=== PATIENT | male | born 1980 | race African-American/Black ===

== ENCOUNTER 2021-04-05 08:32 | Inpatient (IN) | payer OTHER ==
[2021-04-05] VITALS (9 sets, daily range): BP systolic 113–146; BP diastolic 67–94
[~2021-04-05] VITALS: Ht 170.2 cm; Wt 87.4 kg
[~2021-04-05 08:32] MED LIST: ACET1TAB12 PO; ASPI-1005 PO; CIPR500T10 PO; DOXY100T21 PO; HUM10VIA6 SQ; INSLAN SQ; INSU200I SQ; LISI20TA24 PO; METF-444 PO
[2021-04-05 09:00] LABS: BASOPHILS % (AUTO) 0.4 % (0.0-5.0); EOSINOPHILS % (AUTO) 2.4 % (0.0-8.0); LYMPHOCYTES % (AUTO) 8.1 % (21.0-51.0); MEAN CORPUSCULAR HEMOGLOBIN 31.7 pg (27.0-33.0); MEAN CORPUSCULAR HGB CONC 33.5 g/dL (32.0-36.0); MEAN CORPUSCULAR VOLUME 94.7 fL (79-99); MONOCYTES % (AUTO) 7.2 % (3.0-13.0); NEUTROPHILS % (AUTO) 81.1 % (40.0-77.0); PLATELET COUNT (AUTO) 317 K/uL (130-400); RED BLOOD CELL COUNT(AUTO) 5.81 MIL/uL (4.50-6.20); RED CELL DISTRIBUTION WIDTH 12.6 % (11.0-15.5); WHITE BLOOD COUNT (AUTO) 11.7 K/uL (4.8-10.8)
[2021-04-05] MEDS ORDERED: ONDANSETRON 4MG INJ IVP ONE (09:00)
[2021-04-05] MEDS ORDERED: 0.9%NACL 1000ML 2,000 ML IV ONE (09:00)
[2021-04-05 09:20] LABS: ABG BASE EXCESS -22.6 mmol/L (-2.0-3.0); ABG HCO3 3.9 mmol/L (21.0-28.0); ABG OXYGEN SATURATION 98.1 % (95.0-99.0); ABG PCO2 < 14 mmHg (35-48)
[2021-04-05 09:21] LABS: ALBUMIN 4.4 g/dL (3.5-5.0); BILIRUBIN,TOTAL 0.6 mg/dL (0.2-1.0); CREATININE 2.1 mg/dL (0.5-1.5); MAGNESIUM 2.2 mg/dL (1.80-2.40); PHOSPHORUS 5.4 mg/dL (2.5-4.9); POTASSIUM 5.3 mmol/L (3.5-5.1); TOTAL PROTEIN, SERUM 8.8 g/dL (6.0-8.3)
[2021-04-05] MEDS ORDERED: MORPHINE 2 MG SYG IVP ONE (10:00)
[2021-04-05] MEDS ORDERED: DEXTROSE 5 %-0.45 % NACL 1,000 ML IV PRN (10:00)
[2021-04-05] MEDS ORDERED: ACETAMINOPHEN 325 MG SUPPOSITORY RC PRN (10:00)
[2021-04-05] MEDS ORDERED: POTASSIUM CHLORIDE 10MEQ/100ML 100 ML IV PRN (10:00)
[2021-04-05] MEDS ORDERED: ONDANSETRON 4MG INJ IVP PRN (10:00)
[2021-04-05] MEDS ORDERED: INSULIN REGULAR, HUMAN 3ML 100 UNIT in 0.9%NACL 100ML 99 ML IV PRN ×2 (10:00)
[2021-04-05] MEDS: 0.9%NACL 1000ML 1,000 ML IV SCH ×5 (10:22→20:00)
[2021-04-05 10:23] LABS: MAGNESIUM 2.4 mg/dL (1.80-2.40)
[2021-04-05 10:38] LABS: APPEARANCE,URINE Clear (CLEAR); BILIRUBIN,URINE Negative (NEGATIVE); COLOR,URINE Yellow (YELLOW); GLUCOSE, URINE (UA) >=1000 mg/dL (NEGATIVE); KETONES,URINE >=160 mg/dL (NEGATIVE); LEUKOCYTE ESTERASE ,URINE Negative (NEGATIVE); NITRATE,URINE Negative (NEGATIVE); OCCULT BLOOD,URINE Trace (NEGATIVE); PROTEIN,URINE POS 2+ mg/dL (NEGATIVE); UROBILINOGEN,URINE 0.2 mg/dL (0.2-1.0)
[2021-04-05 10:57] LABS: BACTERIA,URINE Rare /HPF (None Seen); RBC,URINE 0-1 /HPF (0-1); SQUAMOUS EPITHELIAL CELL,UR Rare /HPF (0-2); WBC,URINE 0-1 /HPF (0-1)
[2021-04-05] MEDS ORDERED: PHARMACY COMMUNICATION MISC PRN (11:00)
[2021-04-05] MEDS ORDERED: SODIUM BICARB 50MEQ 50ML VIAL IV ONE (11:00)
[2021-04-05 11:32] LABS: AMPHET/METH SCREEN,URINE NEGATIVE (NEGATIVE); BARBITURATE SCREEN, URINE NEGATIVE (NEGATIVE); BENZODIAZEPINES SCREEN,URINE NEGATIVE (NEGATIVE); CANNABINOID SCREEN,URINE NEGATIVE (NEGATIVE); COCAINE SCREEN,URINE NEGATIVE (NEGATIVE); OPIATE SCREEN,URINE NEGATIVE (NEGATIVE); PHENCYCLIDINE SCREEN,URINE NEGATIVE (NEGATIVE)
[2021-04-05] MEDS: LACTATED RINGERS 1000ML 1,000 ML IV SCH ×4 (11:36→14:17)
[2021-04-05 12:49] LABS: HEMOGLOBIN A1C 13.6 % (4.0-6.0)
[2021-04-05] MEDS: CHLORDIAZEPOXIDE HCL 25 MG CAP PO SCH ×2 (14:22→20:19)
[2021-04-05 14:52] LABS: CREATININE 1.5 mg/dL (0.5-1.5); MAGNESIUM 2.1 mg/dL (1.80-2.40); POTASSIUM 4.2 mmol/L (3.5-5.1)
[2021-04-05 21:53] LABS: CREATININE 1.2 mg/dL (0.5-1.5); MAGNESIUM 2.1 mg/dL (1.80-2.40); POTASSIUM 3.5 mmol/L (3.5-5.1)
[2021-04-05] MEDS ORDERED: POTASSIUM CHLORIDE 10% ELIXIR 20 MEQ/15 ML UDCUP PO PRN (23:30)
[2021-04-05] MEDS ORDERED: LIDOCAINE HCL-MPF 1% 2ML VIAL IV PRN (23:30)
[2021-04-05] MEDS ORDERED: INSULIN GLARGINE 100 UNITS/ML 10 ML VIAL SQ ONE (23:30)
[2021-04-06] VITALS (24 sets, daily range): BP systolic 105–154; BP diastolic 65–91
[2021-04-06] MEDS ORDERED: FAMOTIDINE 20MG VIAL IV ONE ×2 (01:47→02:00)
[2021-04-06 03:01] LABS: ABG BASE EXCESS -17.2 mmol/L (-2.0-3.0); ABG PCO2 20 mmHg (35-48)
[2021-04-06] MEDS: 0.9%NACL 1000ML 1,000 ML IV SCH ×3 (03:30→13:19)
[2021-04-06] MEDS ORDERED: POTASSIUM CHLORIDE 10MEQ/100ML 100 ML IV PRN (03:30)
[2021-04-06] MEDS ORDERED: [UNRECOGNIZED DRUG - OTHER] IV ONE (03:30)
[2021-04-06] MEDS ORDERED: DEXTROSE 5 %-0.45 % NACL 1,000 ML IV PRN (03:30)
[2021-04-06] MEDS: LACTATED RINGERS 1000ML 1,000 ML IV SCH ×5 (03:40→22:52)
[2021-04-06 03:54] LABS: CREATININE 1.2 mg/dL (0.5-1.5); MAGNESIUM 1.8 mg/dL (1.80-2.40)
[2021-04-06] MEDS ORDERED: INSULIN REGULAR, HUMAN 3ML 100 UNIT in 0.9%NACL 100ML 99 ML IV PRN ×2 (04:00)
[2021-04-06] MEDS ORDERED: INSULIN HUMULIN R 100 UNIT/ML 3ML SQ SCH (07:30)
[2021-04-06 07:56] LABS: BASOPHILS % (AUTO) 0.3 % (0.0-5.0); EOSINOPHILS % (AUTO) 0.2 % (0.0-8.0); HEMATOCRIT 41.6 % (42-54); LYMPHOCYTES % (AUTO) 25.3 % (21.0-51.0); MEAN CORPUSCULAR HEMOGLOBIN 31.9 pg (27.0-33.0); MEAN CORPUSCULAR HGB CONC 35.1 g/dL (32.0-36.0); MEAN CORPUSCULAR VOLUME 90.8 fL (79-99); NEUTROPHILS % (AUTO) 60.6 % (40.0-77.0); PLATELET COUNT (AUTO) 186 K/uL (130-400); RED BLOOD CELL COUNT(AUTO) 4.58 MIL/uL (4.50-6.20); RED CELL DISTRIBUTION WIDTH 12.7 % (11.0-15.5); WHITE BLOOD COUNT (AUTO) 9.7 K/uL (4.8-10.8)
[2021-04-06 08:19] LABS: CREATININE 1.1 mg/dL (0.5-1.5); POTASSIUM 3.3 mmol/L (3.5-5.1)
[2021-04-06] MEDS: CHLORDIAZEPOXIDE HCL 25 MG CAP PO SCH ×2 (08:38→20:50)
[2021-04-06] MEDS: FOLIC ACID 1 MG TABLET PO SCH (08:38)
[2021-04-06] MEDS: MULTIVITAMIN TABLET PO SCH (08:38)
[2021-04-06] MEDS: ENOXAPARIN SODIUM 40 MG/0.4 ML SYRINGE SQ SCH (08:38)
[2021-04-06] MEDS: THIAMINE HCL 100 MG/ML 2ML VIAL IM SCH (08:39)
[2021-04-06] MEDS: FAMOTIDINE 20MG VIAL IV SCH ×2 (08:39→20:50)
[2021-04-06] MEDS: POTASSIUM CHLORIDE 20MEQ/100ML 100 ML IV PRN (08:42)
[2021-04-06] MEDS: KCL 20 MEQ ERTAB PO PRN ×2 (08:43→20:54)
[2021-04-06] MEDS ORDERED: INSULIN GLARGINE 100 UNITS/ML 10 ML VIAL SQ SCH (09:00)
[2021-04-06 09:44] LABS: THYROID STIMULATING HORMONE 0.88 uIU/mL (0.36-3.74)
[2021-04-06 12:06] LABS: CREATININE 1.1 mg/dL (0.5-1.5); POTASSIUM 3.6 mmol/L (3.5-5.1)
[2021-04-06 14:17] LABS: ABG HCO3 14.6 mmol/L (21.0-28.0); ABG OXYGEN SATURATION 97.4 % (95.0-99.0); ABG PCO2 26 mmHg (35-48)
[2021-04-06 16:10] LABS: HEPATITIS A ANTIBODY IGM Negative (Negative); HEPATITIS B CORE IGM Negative (Negative); HEPATITIS Bs ANTIGEN SCREEN P Negative (Negative)
[2021-04-06 16:40] LABS: POTASSIUM 3.4 mmol/L (3.5-5.1)
[2021-04-06 19:26] LABS: ABG BASE EXCESS -8.6 mmol/L (-2.0-3.0); ABG HCO3 14.8 mmol/L (21.0-28.0); ABG OXYGEN SATURATION 97.6 % (95.0-99.0); ABG PCO2 26 mmHg (35-48)
[2021-04-06 20:33] LABS: POTASSIUM 3.3 mmol/L (3.5-5.1)
[2021-04-07] VITALS (15 sets, daily range): BP systolic 99–146; BP diastolic 60–96
[2021-04-07 00:53] LABS: CREATININE 1.1 mg/dL (0.5-1.5); POTASSIUM 3.7 mmol/L (3.5-5.1)
[2021-04-07] MEDS: LACTATED RINGERS 1000ML 1,000 ML IV SCH ×3 (05:45→23:22)
[2021-04-07 08:37] LABS: CREATININE 0.9 mg/dL (0.5-1.5); POTASSIUM 3.1 mmol/L (3.5-5.1)
[2021-04-07] MEDS: THIAMINE HCL 100 MG/ML 2ML VIAL IM SCH (08:39)
[2021-04-07] MEDS: FAMOTIDINE 20MG VIAL IV SCH ×2 (08:39→20:07)
[2021-04-07] MEDS: CHLORDIAZEPOXIDE HCL 25 MG CAP PO SCH ×2 (08:40→20:07)
[2021-04-07] MEDS: MULTIVITAMIN TABLET PO SCH (08:40)
[2021-04-07] MEDS: ENOXAPARIN SODIUM 40 MG/0.4 ML SYRINGE SQ SCH (08:40)
[2021-04-07] MEDS: FOLIC ACID 1 MG TABLET PO SCH (08:40)
[2021-04-07] MEDS: POTASSIUM CHLORIDE 20MEQ/100ML 100 ML IV PRN (08:45)
[2021-04-07] MEDS: KCL 20 MEQ ERTAB PO PRN ×7 (08:46→22:37)
[2021-04-07 12:19] LABS: CREATININE 0.7 mg/dL (0.5-1.5); POTASSIUM 3.2 mmol/L (3.5-5.1)
[2021-04-07] MEDS ORDERED: INSULIN GLARGINE 100 UNITS/ML 10 ML VIAL SQ ONE (13:00)
[2021-04-07] MEDS: INSULIN HUMULIN R 100 UNIT/ML 3ML SQ SCH ×4 (13:00→20:29)
[2021-04-07 18:17] LABS: MAGNESIUM 1.6 mg/dL (1.80-2.40); POTASSIUM 3.2 mmol/L (3.5-5.1)
[2021-04-07] MEDS ORDERED: MAGNESIUM 2GM PREMIX 50ML 50 ML IV ONE (18:25)
[2021-04-07] MEDS ORDERED: MAGNESIUM 2GM PREMIX 50ML 50 ML IV PRN (18:30)
[2021-04-08] MEDS: LACTATED RINGERS 1000ML 1,000 ML IV SCH (02:39)
[2021-04-08 03:47] VITALS: BP 113/61
[2021-04-08 04:57] LABS: CREATININE 0.6 mg/dL (0.5-1.5); POTASSIUM 3.8 mmol/L (3.5-5.1)
[2021-04-08] MEDS: INSULIN HUMULIN R 100 UNIT/ML 3ML SQ SCH ×7 (06:22→20:22)
[2021-04-08] MEDS ORDERED: INSULIN GLARGINE 100 UNITS/ML 10 ML VIAL SQ SCH ×2 (07:30→09:00)
[2021-04-08 08:00] VITALS: BP 121/84
[2021-04-08] MEDS ORDERED: THIAMINE HCL 100 MG/ML 2ML VIAL IV SCH (09:00)
[2021-04-08] MEDS: MULTIVITAMIN TABLET PO SCH (09:46)
[2021-04-08] MEDS: FOLIC ACID 1 MG TABLET PO SCH (09:47)
[2021-04-08] MEDS: CHLORDIAZEPOXIDE HCL 25 MG CAP PO SCH ×2 (09:47→20:21)
[2021-04-08] MEDS: FAMOTIDINE 20MG VIAL IV SCH ×2 (09:47→20:21)
[2021-04-08] MEDS: METOPROLOL TARTRATE 25 MG TAB PO SCH ×2 (09:47→20:21)
[2021-04-08] MEDS: ENOXAPARIN SODIUM 40 MG/0.4 ML SYRINGE SQ SCH (09:48)
[2021-04-08 12:00] VITALS: BP 133/83
[2021-04-08 16:00] VITALS: BP 140/97
[2021-04-08 20:10] VITALS: BP 134/89
[2021-04-09 00:05] VITALS: BP 122/76
[2021-04-09 04:09] VITALS: BP 134/89
[2021-04-09 04:54] LABS: BASOPHILS % (AUTO) 0.7 % (0.0-5.0); EOSINOPHILS % (AUTO) 4.3 % (0.0-8.0); HEMATOCRIT 37.6 % (42-54); LYMPHOCYTES % (AUTO) 52.4 % (21.0-51.0); MEAN CORPUSCULAR HEMOGLOBIN 32.2 pg (27.0-33.0); MEAN CORPUSCULAR HGB CONC 34.8 g/dL (32.0-36.0); MEAN CORPUSCULAR VOLUME 92.4 fL (79-99); MONOCYTES % (AUTO) 10.2 % (3.0-13.0); NEUTROPHILS % (AUTO) 32.2 % (40.0-77.0); PLATELET COUNT (AUTO) 150 K/uL (130-400); RED BLOOD CELL COUNT(AUTO) 4.07 MIL/uL (4.50-6.20); RED CELL DISTRIBUTION WIDTH 12.4 % (11.0-15.5); WHITE BLOOD COUNT (AUTO) 5.6 K/uL (4.8-10.8)
[2021-04-09 05:09] LABS: CREATININE 0.8 mg/dL (0.5-1.5); POTASSIUM 4.1 mmol/L (3.5-5.1)
[2021-04-09] MEDS: INSULIN HUMULIN R 100 UNIT/ML 3ML SQ SCH ×6 (05:17→16:55)
[2021-04-09 07:30] VITALS: BP 113/79
[2021-04-09] MEDS ORDERED: INSULIN HUMULIN R 100 UNIT/ML 3ML SQ SCH (07:30)
[2021-04-09] MEDS ORDERED: INSULIN GLARGINE 100 UNITS/ML 10 ML VIAL SQ SCH ×2 (09:00)
[2021-04-09] MEDS: MULTIVITAMIN TABLET PO SCH (10:07)
[2021-04-09] MEDS: METOPROLOL TARTRATE 25 MG TAB PO SCH (10:07)
[2021-04-09] MEDS: ENOXAPARIN SODIUM 40 MG/0.4 ML SYRINGE SQ SCH (10:07)
[2021-04-09] MEDS: FAMOTIDINE 20MG VIAL IV SCH (10:07)
[2021-04-09] MEDS: CHLORDIAZEPOXIDE HCL 25 MG CAP PO SCH (10:07)
[2021-04-09 11:00] VITALS: BP 131/80
[2021-04-09 16:00] VITALS: BP 127/85
[2021-04-10] MEDS ORDERED: INSULIN HUMULIN R 100 UNIT/ML 3ML SQ SCH (07:30)
== END 2021-04-09 20:00 | disposition home or self-care (01) | DRG 638 ==
LOC: EDH 08:32 → EDHIP 10:01 → INTOOBSV 10:01 → OBSVTOIN 10:01 → 2DH 14:01 → 4BH 04-07 18:37
PROVIDERS: ADMIT Internal Medicine; ATTEND Internal Medicine
DX: E10.10 Type 1 diabetes mellitus with ketoacidosis without coma (principal); N17.9 Acute kidney failure, unspecified; T38.3X6A Underdosing of insulin and oral hypoglycemic [antidiabetic] drugs, initial encounter; I12.9 Hypertensive chronic kidney disease with stage 1 through stage 4 chronic kidney disease, or unspecified chronic kidney disease; E78.5 Hyperlipidemia, unspecified; E87.6 Hypokalemia; N18.9 Chronic kidney disease, unspecified; E10.22 Type 1 diabetes mellitus with diabetic chronic kidney disease; E10.649 Type 1 diabetes mellitus with hypoglycemia without coma; J44.9 Chronic obstructive pulmonary disease, unspecified; F12.90 Cannabis use, unspecified, uncomplicated; E86.0 Dehydration; D72.829 Elevated white blood cell count, unspecified; E87.5 Hyperkalemia; E10.65 Type 1 diabetes mellitus with hyperglycemia; Y92.89 Other specified places as the place of occurrence of the external cause; Z79.4 Long term (current) use of insulin; Z91.14 Patient's other noncompliance with medication regimen; Z91.19 Patient's noncompliance with other medical treatment and regimen; Z82.0 Family history of epilepsy and other diseases of the nervous system; Z82.3 Family history of stroke; Z83.3 Family history of diabetes mellitus; Z82.5 Family history of asthma and other chronic lower respiratory diseases; Z82.49 Family history of ischemic heart disease and other diseases of the circulatory system
CPT/HCPCS: 36415; 36600; 80048; 80053; 80061; 80074; 80305; 81001; 82010; 82150; 82435; 82550; 82803; 82947; 82948; 83036; 83605; 83690; 83735; 83874; 84100; 84132; 84295; 84443; 84484; 85018; 85025; 86701; 87390; 93005; 93306; 99291; G0378; J1650; J1815; J2405; J3411; J3475; J3480; J3490; J7030; J7120

== ENCOUNTER 2021-06-17 15:22 | Inpatient (IN) | payer OTHER ==
[~2021-06-17] VITALS: Ht 170.2 cm; Wt 68.0 kg
[~2021-06-17 15:22] MED LIST changes: -ACET1TAB12 PO; -ASPI-1005 PO; -CIPR500T10 PO; -DOXY100T21 PO; -HUM10VIA6 SQ; -INSLAN SQ; -INSU200I SQ; -LISI20TA24 PO
[2021-06-17 15:54] LABS: BASOPHILS % (AUTO) 0.4 % (0.0-5.0); EOSINOPHILS % (AUTO) 0.2 % (0.0-8.0); HEMATOCRIT 53.2 % (42-54); LYMPHOCYTES % (AUTO) 16.9 % (21.0-51.0); MEAN CORPUSCULAR HEMOGLOBIN 32.2 pg (27.0-33.0); MEAN CORPUSCULAR HGB CONC 34.4 g/dL (32.0-36.0); MEAN CORPUSCULAR VOLUME 93.7 fL (79-99); MONOCYTES % (AUTO) 6.5 % (3.0-13.0); NEUTROPHILS % (AUTO) 75.7 % (40.0-77.0); PLATELET COUNT (AUTO) 206 K/uL (130-400); RED BLOOD CELL COUNT(AUTO) 5.68 MIL/uL (4.50-6.20); RED CELL DISTRIBUTION WIDTH 11.7 % (11.0-15.5); WHITE BLOOD COUNT (AUTO) 11.3 K/uL (4.8-10.8)
[2021-06-17 16:17] LABS: CREATININE 1.2 mg/dL (0.5-1.5); POTASSIUM 4.7 mmol/L (3.5-5.1)
[2021-06-17 16:21] LABS: ALBUMIN 4.8 g/dL (3.5-5.0); BILIRUBIN,TOTAL 0.7 mg/dL (0.2-1.0); TOTAL PROTEIN, SERUM 9.3 g/dL (6.0-8.3)
[2021-06-17] MEDS ORDERED: 0.9%NACL 1000ML 1,000 ML IV ONE (16:30)
[2021-06-17] MEDS ORDERED: LACTATED RINGERS 1000ML 1,000 ML IV ONE (17:00)
[2021-06-17] MEDS ORDERED: PHARMACY COMMUNICATION MISC SCH (17:00)
[2021-06-17] MEDS: INSULIN REGULAR, HUMAN 3ML 100 UNIT in 0.9%NACL 100ML 99 ML IV SCH ×2 (17:00)
[2021-06-17 18:13] LABS: ABG BASE EXCESS -19.2 mmol/L (-2.0-3.0); ABG OXYGEN SATURATION 96.7 % (95.0-99.0); ABG PCO2 19 mmHg (35-48)
[2021-06-17] MEDS: DEXTROSE 5 %-0.45 % NACL 1,000 ML IV SCH (18:50)
[2021-06-17 19:36] LABS: ABG OXYGEN SATURATION 76.3 % (95.0-99.0); BASE EXCESS,VENOUS BLOOD GAS -17.8 (-2.0-3.0); HCO3,VENOUS BLOOD GAS 9.5 (21.0-28.0); PCO2,VENOUS BLOOD GAS 29 (35-48); PH,VENOUS BLOOD GAS 7.141 (7.350-7.450)
[2021-06-17] MEDS ORDERED: LACTATED RINGERS 1000ML IV SCH (19:40)
[2021-06-17] MEDS ORDERED: FAMOTIDINE 20MG VIAL IV ONE (19:40)
[2021-06-17] MEDS ORDERED: SUCRALFATE 1 GM TABLET PO SCH (19:40)
[2021-06-17] MEDS ORDERED: ACETAMINOPHEN 500 MG TABLET PO ONE (20:00)
[2021-06-17 20:26] LABS: ABG OXYGEN SATURATION 31.7 % (95.0-99.0); BASE EXCESS,VENOUS BLOOD GAS -17.7 (-2.0-3.0); PCO2,VENOUS BLOOD GAS 30 (35-48); PH,VENOUS BLOOD GAS 7.135 (7.350-7.450)
[2021-06-17 20:41] LABS: POTASSIUM 4.8 mmol/L (3.5-5.1)
[2021-06-17 20:44] LABS: MAGNESIUM 2.1 mg/dL (1.80-2.40); PHOSPHORUS 2.6 mg/dL (2.5-4.9)
[2021-06-17] MEDS ORDERED: ACETAMINOPHEN 500 MG TABLET ONE (22:48)
[2021-06-17 23:41] LABS: POTASSIUM 4.4 mmol/L (3.5-5.1)
[2021-06-17 23:59] LABS: ABG OXYGEN SATURATION 62.7 % (95.0-99.0); BASE EXCESS,VENOUS BLOOD GAS -15.6 (-2.0-3.0); HCO3,VENOUS BLOOD GAS 10.6 (21.0-28.0); PCO2,VENOUS BLOOD GAS 27 (35-48); PH,VENOUS BLOOD GAS 7.213 (7.350-7.450)
[2021-06-18 03:46] LABS: ABG OXYGEN SATURATION 88.8 % (95.0-99.0); BASE EXCESS,VENOUS BLOOD GAS -15.1 (-2.0-3.0); HCO3,VENOUS BLOOD GAS 11.4 (21.0-28.0); PCO2,VENOUS BLOOD GAS 30 (35-48); PH,VENOUS BLOOD GAS 7.205 (7.350-7.450)
[2021-06-18] MEDS: INSULIN REGULAR, HUMAN 3ML 100 UNIT in 0.9%NACL 100ML 99 ML IV SCH ×2 (04:00)
[2021-06-18 04:48] LABS: CREATININE 0.9 mg/dL (0.5-1.5); POTASSIUM 3.6 mmol/L (3.5-5.1)
[2021-06-18] MEDS: DEXTROSE 5 %-0.45 % NACL 1,000 ML IV SCH ×4 (06:58→22:17)
[2021-06-18] MEDS ORDERED: POTASSIUM CHLORIDE 10% ELIXIR 20 MEQ/15 ML UDCUP PO PRN (08:30)
[2021-06-18] MEDS ORDERED: INSULIN REGULAR, HUMAN 3ML 100 UNIT in 0.9%NACL 100ML 99 ML IV PRN ×4 (08:30→13:00)
[2021-06-18] MEDS ORDERED: ONDANSETRON ODT 4MG TAB SL PRN (08:30)
[2021-06-18] MEDS ORDERED: POTASSIUM CHLORIDE 20MEQ/100ML 100 ML IV PRN (08:30)
[2021-06-18] MEDS ORDERED: LIDOCAINE HCL-MPF 1% 2ML VIAL IV PRN (08:30)
[2021-06-18] MEDS ORDERED: ACETAMINOPHEN 325 MG TAB PO PRN (08:30)
[2021-06-18] MEDS ORDERED: INSULIN GLARGINE 100 UNITS/ML 10 ML VIAL SQ SCH (12:30)
[2021-06-18] MEDS ORDERED: INSU100I35 SQ ×2 (12:47)
[2021-06-18 13:13] LABS: CREATININE 0.9 mg/dL (0.5-1.5); POTASSIUM 3.8 mmol/L (3.5-5.1)
[2021-06-18 13:21] LABS: ABG BASE EXCESS -13.1 mmol/L (-2.0-3.0); ABG HCO3 11.5 mmol/L (21.0-28.0); ABG OXYGEN SATURATION 96.8 % (95.0-99.0); ABG PCO2 25 mmHg (35-48)
[2021-06-18 19:13] LABS: POTASSIUM 3.9 mmol/L (3.5-5.1)
[2021-06-18 19:15] LABS: HEMATOCRIT 47.5 % (42-54)
[2021-06-18] MEDS: INSULIN GLARGINE 100 UNITS/ML 10 ML VIAL SQ SCH (22:17)
[2021-06-18] MEDS ORDERED: THIAMINE HCL 100 MG/ML 2ML VIAL IVP ONE (23:30)
[2021-06-18] MEDS ORDERED: CHLORDIAZEPOXIDE HCL 25 MG CAP PO ONE (23:30)
[2021-06-18] MEDS ORDERED: LORAZEPAM 2 MG/ML 1 ML VIAL IVP PRN (23:30)
[2021-06-18] MEDS ORDERED: FOLIC ACID 5 MG/ML VIAL ONE (23:43)
[2021-06-18] MEDS ORDERED: M.V.I. IV [ADULT] 10 ML VIAL IV ONE (23:43)
[2021-06-19] MEDS ORDERED: IPRATROPIUM/ALBUTEROL SULFATE 3 ML SOLUTION IH ONE (00:03)
[2021-06-19 01:52] LABS: HEMATOCRIT 45.3 % (42-54)
[2021-06-19 02:11] LABS: CREATININE 0.8 mg/dL (0.5-1.5); POTASSIUM 3.5 mmol/L (3.5-5.1)
[2021-06-19] MEDS ORDERED: SODIUM BICARB 50MEQ 50ML VIAL IV STA (02:29)
[2021-06-19] MEDS ORDERED: 0.9%NACL 1000ML 660 ML IV ONE (02:30)
[2021-06-19] MEDS: DEXTROSE 5 %-0.45 % NACL 1,000 ML IV SCH ×3 (03:50→17:10)
[2021-06-19 06:19] LABS: HEMOGLOBIN A1C 10.7 % (4.0-6.0)
[2021-06-19 06:36] LABS: ALBUMIN 2.9 g/dL (3.5-5.0); BILIRUBIN,TOTAL 0.7 mg/dL (0.2-1.0); CREATININE 0.7 mg/dL (0.5-1.5); MAGNESIUM 1.5 mg/dL (1.80-2.40); PHOSPHORUS 1.7 mg/dL (2.5-4.9); TOTAL PROTEIN, SERUM 5.7 g/dL (6.0-8.3)
[2021-06-19 06:47] LABS: HEMATOCRIT 43.9 % (42-54); MEAN CORPUSCULAR HEMOGLOBIN 31.8 pg (27.0-33.0); MEAN CORPUSCULAR HGB CONC 34.6 g/dL (32.0-36.0); MEAN CORPUSCULAR VOLUME 91.8 fL (79-99); RED BLOOD CELL COUNT(AUTO) 4.78 MIL/uL (4.50-6.20); RED CELL DISTRIBUTION WIDTH 11.9 % (11.0-15.5)
[2021-06-19] MEDS: INSULIN GLARGINE 100 UNITS/ML 10 ML VIAL SQ SCH ×2 (08:17→20:46)
[2021-06-19] MEDS: M.V.I. IV [ADULT] 10 ML, FOLIC ACID 1 MG, THIAMINE HCL 100 MG in 0.9%NACL 1000ML 1,000 ML IV SCH (08:17)
[2021-06-19 12:37] LABS: CREATININE 0.9 mg/dL (0.5-1.5); POTASSIUM 3.3 mmol/L (3.5-5.1)
[2021-06-19] MEDS ORDERED: INSULIN HUMULIN R 100 UNIT/ML 3ML ONE (14:28)
[2021-06-19] MEDS: KCL 20 MEQ ERTAB PO PRN (14:30)
[2021-06-19] MEDS: INSULIN HUMULIN R 100 UNIT/ML 3ML SQ SCH ×3 (16:25→20:46)
[2021-06-19 19:13] LABS: CREATININE 0.9 mg/dL (0.5-1.5); POTASSIUM 3.7 mmol/L (3.5-5.1)
[2021-06-19 20:23] LABS: HEMATOCRIT 43.3 % (42-54)
[2021-06-20] MEDS: DEXTROSE 5 %-0.45 % NACL 1,000 ML IV SCH ×2 (00:42→06:25)
[2021-06-20 01:00] VITALS: BP 147/85
[2021-06-20 04:00] VITALS: BP 132/88
[2021-06-20 05:16] LABS: HEMATOCRIT 43.2 % (42-54); MEAN CORPUSCULAR HEMOGLOBIN 31.8 pg (27.0-33.0); MEAN CORPUSCULAR HGB CONC 34.7 g/dL (32.0-36.0); MEAN CORPUSCULAR VOLUME 91.7 fL (79-99); RED BLOOD CELL COUNT(AUTO) 4.71 MIL/uL (4.50-6.20); RED CELL DISTRIBUTION WIDTH 11.9 % (11.0-15.5); WHITE BLOOD COUNT (AUTO) 7.5 K/uL (4.8-10.8)
[2021-06-20 05:29] LABS: CREATININE 0.9 mg/dL (0.5-1.5); MAGNESIUM 1.7 mg/dL (1.80-2.40); PHOSPHORUS 2.4 mg/dL (2.5-4.9); POTASSIUM 3.2 mmol/L (3.5-5.1); URIC ACID 7.3 mg/dL (2.6-7.2)
[2021-06-20] MEDS: INSULIN HUMULIN R 100 UNIT/ML 3ML SQ SCH ×8 (06:00→20:55)
[2021-06-20] MEDS: MAGNESIUM 2GM PREMIX 50ML 50 ML IV PRN (06:03)
[2021-06-20] MEDS: INSULIN GLARGINE 100 UNITS/ML 10 ML VIAL SQ SCH ×2 (06:05→12:46)
[2021-06-20] MEDS: LACTULOSE 20 GM/30 ML UDCUP PO PRN ×2 (06:30→21:06)
[2021-06-20 08:00] VITALS: BP 133/76
[2021-06-20] MEDS: M.V.I. IV [ADULT] 10 ML, FOLIC ACID 1 MG, THIAMINE HCL 100 MG in 0.9%NACL 1000ML 1,000 ML IV SCH (09:00)
[2021-06-20] MEDS: Vitamin B Complex/Vit C/Folic Acid PO SCH (10:08)
[2021-06-20 11:50] VITALS: BP 123/75
[2021-06-20 16:00] VITALS: BP 152/99
[2021-06-20] MEDS: KCL 20 MEQ ERTAB PO PRN (16:10)
[2021-06-20 19:00] VITALS: BP 126/77
[2021-06-21] VITALS: BP 126/83
[2021-06-21] MEDS: KCL 20 MEQ ERTAB PO PRN ×3 (00:40→10:39)
[2021-06-21 04:00] VITALS: BP 142/90
[2021-06-21] MEDS: INSULIN HUMULIN R 100 UNIT/ML 3ML SQ SCH ×3 (06:01→12:47)
[2021-06-21 08:00] VITALS: BP 135/76
[2021-06-21] MEDS: Vitamin B Complex/Vit C/Folic Acid PO SCH (10:39)
[2021-06-21] MEDS: MAGNESIUM 2GM PREMIX 50ML 50 ML IV PRN (10:42)
[2021-06-21] MEDS ORDERED: INSULIN HUMULIN R 100 UNIT/ML 3ML SQ SCH (11:30)
[2021-06-21 12:00] VITALS: BP 134/87
[2021-06-21] MEDS ORDERED: INSULIN GLARGINE 100 UNITS/ML 10 ML VIAL SQ SCH (12:00)
[2021-06-21] MEDS: INSULIN GLARGINE 100 UNITS/ML 10 ML VIAL SQ SCH (12:44)
[2021-06-21 16:00] VITALS: BP 134/85
== END 2021-06-21 18:25 | disposition home or self-care (01) | DRG 638 ==
LOC: EDH 15:30 → EDHIP 15:31 → 3BH 06-19 23:56
PROVIDERS: ADMIT Internal Medicine Infectious Disease; ATTEND Internal Medicine Infectious Disease
DX: E10.10 Type 1 diabetes mellitus with ketoacidosis without coma (principal); E87.1 Hypo-osmolality and hyponatremia; K92.0 Hematemesis; I10 Essential (primary) hypertension; E86.0 Dehydration; E66.9 Obesity, unspecified; Z68.23 Body mass index [BMI] 23.0-23.9, adult; F14.90 Cocaine use, unspecified, uncomplicated; Z20.822 Contact with and (suspected) exposure to COVID-19; G43.909 Migraine, unspecified, not intractable, without status migrainosus; E87.6 Hypokalemia; F10.10 Alcohol abuse, uncomplicated; K42.9 Umbilical hernia without obstruction or gangrene; F12.90 Cannabis use, unspecified, uncomplicated; Z79.4 Long term (current) use of insulin; Z91.19 Patient's noncompliance with other medical treatment and regimen; Z82.3 Family history of stroke; Z83.3 Family history of diabetes mellitus; Z82.0 Family history of epilepsy and other diseases of the nervous system; Z82.49 Family history of ischemic heart disease and other diseases of the circulatory system; Z82.5 Family history of asthma and other chronic lower respiratory diseases
CPT/HCPCS: 36415; 36600; 71045; 74176; 80048; 80053; 80061; 82010; 82435; 82803; 82947; 82948; 83036; 83605; 83735; 84100; 84132; 84295; 84550; 85014; 85018; 85025; 85027; 87040; 87426; 93005; 94640; 99291; G0378; J1815; J3411; J3475; J3480; J3490; J7030; J7042

== ENCOUNTER 2022-09-11 23:47 | Inpatient (IN) | payer OTHER ==
[~2022-09-11] VITALS: Ht 170.2 cm; Wt 86.4 kg
[~2022-09-11 23:47] MED LIST changes: +INSU100I35 SQ; -METF-444 PO
[2022-09-12] VITALS (67 sets, daily range): BP systolic 101–158; BP diastolic 38–120
[2022-09-12 00:28] LABS: INR 0.93 (0.85-1.15); PROTHROMBIN TIME 10.1 SEC (9.6-11.6)
[2022-09-12 00:29] LABS: PARTIAL THROMBOPLASTIN TIME 25.8 SEC (26.3-35.5)
[2022-09-12] MEDS ORDERED: ONDANSETRON 4MG INJ IVP ONE (00:30)
[2022-09-12] MEDS ORDERED: 0.9%NACL 1000ML 1,000 ML IV ONE ×2 (00:30)
[2022-09-12 00:36] LABS: ABG OXYGEN SATURATION 15.7 % (95.0-99.0); BASE EXCESS,VENOUS BLOOD GAS -20.7 (-2.0-3.0); HCO3,VENOUS BLOOD GAS 8.2 (21.0-28.0); PCO2,VENOUS BLOOD GAS 29 (35-48); PH,VENOUS BLOOD GAS 7.072 (7.350-7.450)
[2022-09-12 00:42] LABS: ALANINE AMINOTRANSFERASE 24 U/L (12-78); ALBUMIN 5.1 g/dL (3.5-5.0); ASPARTATE AMINOTRANSFERASE 5 U/L (10-37); CARBON DIOXIDE 11 mmol/L (21-32); CHLORIDE 94 mmol/L (101-111); CREATININE 1.8 mg/dL (0.5-1.5); GLOMERULAR FILTR. RATE CALC 48 mL/min (>90); POTASSIUM 4.6 mmol/L (3.5-5.1); SODIUM SERUM 129 mmol/L (136-145); TOTAL PROTEIN, SERUM 9.9 g/dL (6.0-8.3); UREA NITROGEN, BLOOD 17 mg/dL (7-18)
[2022-09-12 00:45] LABS: GLUCOSE,RANDOM 443 mg/dL (70-105)
[2022-09-12] MEDS ORDERED: MAGNESIUM 2GM PREMIX 50ML 50 ML IV SCH (01:00)
[2022-09-12] MEDS ORDERED: ACETAMINOPHEN 325 MG TAB PO PRN ×2 (01:00)
[2022-09-12] MEDS ORDERED: ONDANSETRON 4MG INJ IV PRN (01:00)
[2022-09-12] MEDS ORDERED: MORPHINE 4 MG SYG IV PRN (01:00)
[2022-09-12] MEDS ORDERED: 0.9%NACL 1000ML 1,000 ML IV SCH (01:00)
[2022-09-12] MEDS ORDERED: INSULIN HUMULIN R 100 UNIT/ML 3ML IV ONE (01:00)
[2022-09-12] MEDS ORDERED: MORPHINE 2 MG SYG IV PRN (01:00)
[2022-09-12] MEDS ORDERED: PHARMACY COMMUNICATION MISC SCH (01:00)
[2022-09-12 01:23] LABS: BASOPHILS % (AUTO) 0.4 % (0.0-5.0); EOSINOPHILS % (AUTO) 0.8 % (0.0-8.0); LYMPHOCYTES % (AUTO) 15.4 % (21.0-51.0); MEAN CORPUSCULAR HEMOGLOBIN 32.4 pg (27.0-33.0); MEAN CORPUSCULAR HGB CONC 33.6 g/dL (32.0-36.0); MEAN CORPUSCULAR VOLUME 96.5 fL (79-99); MONOCYTES % (AUTO) 6.1 % (3.0-13.0); NEUTROPHILS % (AUTO) 76.9 % (40.0-77.0); PLATELET COUNT (AUTO) 269 K/uL (130-400); RED BLOOD CELL COUNT(AUTO) 6.01 MIL/uL (4.50-6.20); RED CELL DISTRIBUTION WIDTH 12.1 % (11.0-15.5); WHITE BLOOD COUNT (AUTO) 8.5 K/uL (4.8-10.8)
[2022-09-12] MEDS ORDERED: SODIUM BICARB 50MEQ 50ML VIAL 150 ML ONE ×2 (01:23→02:01)
[2022-09-12] MEDS ORDERED: PHARMACY COMMUNICATION MISC PRN (01:30)
[2022-09-12] MEDS ORDERED: LORAZEPAM 2 MG/ML 1 ML VIAL IVP PRN (01:30)
[2022-09-12] MEDS ORDERED: SODIUM BICARB 50MEQ 50ML VIAL 150 MEQ in DEXTROSE 5%-WATER 1,000 ML IV ONE (01:30)
[2022-09-12] MEDS: CHLORDIAZEPOXIDE HCL 25 MG CAP PO SCH ×3 (01:31→16:19)
[2022-09-12] MEDS: INSULIN REGULAR, HUMAN 3ML 100 UNIT in 0.9%NACL 100ML 100 ML IV SCH ×4 (02:16→20:14)
[2022-09-12 02:33] LABS: APPEARANCE,URINE CLEAR (CLEAR); BILIRUBIN,URINE NEGATIVE (NEGATIVE); COLOR,URINE LIGHT-YELLOW (YELLOW); GLUCOSE, URINE (UA) >=1000 mg/dL (NEGATIVE); KETONES,URINE 150 mg/dL (NEGATIVE); LEUKOCYTE ESTERASE ,URINE NEGATIVE Leu/uL (NEGATIVE); NITRATE,URINE NEGATIVE (NEGATIVE); PH,URINE 5.5 (5.0-8.0); PROTEIN,URINE 200 mg/dL (NEGATIVE); UROBILINOGEN,URINE 0.2 mg/dL (0.2-1.0)
[2022-09-12 02:35] LABS: AMPHET/METH SCREEN,URINE NEGATIVE (NEGATIVE); BARBITURATE SCREEN, URINE NEGATIVE (NEGATIVE); BENZODIAZEPINES SCREEN,URINE NEGATIVE (NEGATIVE); CANNABINOID SCREEN,URINE POSITIVE (NEGATIVE); COCAINE SCREEN,URINE NEGATIVE (NEGATIVE); HYALINE CASTS, URINE 0-1 /LPF (0-1 /LPF); OPIATE SCREEN,URINE NEGATIVE (NEGATIVE); PHENCYCLIDINE SCREEN,URINE NEGATIVE (NEGATIVE); RBC,URINE 0-1 /HPF (0-1); SQUAMOUS EPITHELIAL CELL,UR RARE /HPF (0-2)
[2022-09-12 06:39] LABS: CREATININE 1.2 mg/dL (0.5-1.5)
[2022-09-12 07:27] LABS: ABG BASE EXCESS -12.3 mmol/L (-2.0-3.0); ABG OXYGEN SATURATION 97.2 % (95.0-99.0); ABG PCO2 25 mmHg (35-48)
[2022-09-12] MEDS ORDERED: INSULIN GLARGINE 100 UNITS/ML 10 ML VIAL SQ SCH (07:30)
[2022-09-12] MEDS: D5W-1/2 NS/20MEQ KCL 1,000 ML IV SCH ×3 (08:20→20:12)
[2022-09-12 09:14] LABS: CHOLESTEROL 343 mg/dL (<200); HDL CHOLESTEROL 93 mg/dL (29-71); LDL DIRECT 192 mg/dL (0-99); TRIGLYCERIDES 218 mg/dL (30-200)
[2022-09-12 09:24] LABS: HEMOGLOBIN A1C 13.5 % (4.0-6.0)
[2022-09-12] MEDS: ENOXAPARIN SODIUM 40 MG/0.4 ML SYRINGE SQ SCH (09:52)
[2022-09-12] MEDS: MULTIVITAMIN TABLET PO SCH (09:52)
[2022-09-12] MEDS: FOLIC ACID 1 MG TABLET PO SCH (09:52)
[2022-09-12] MEDS: THIAMINE HCL 100 MG/ML 2ML VIAL IM SCH (09:53)
[2022-09-12] MEDS: FAMOTIDINE 20MG VIAL IV SCH ×2 (09:53→20:28)
[2022-09-12 09:55] LABS: CREATININE 1.2 mg/dL (0.5-1.5); POTASSIUM 3.7 mmol/L (3.5-5.1)
[2022-09-12 15:49] LABS: CREATININE 1.1 mg/dL (0.5-1.5); POTASSIUM 3.6 mmol/L (3.5-5.1)
[2022-09-12 18:29] LABS: POTASSIUM 3.3 mmol/L (3.5-5.1)
[2022-09-12] MEDS: POTASSIUM CHLORIDE 10MEQ/100ML 100 ML IV PRN ×2 (20:21→20:23)
[2022-09-12] MEDS: INSULIN GLARGINE 100 UNITS/ML 10 ML VIAL SQ SCH (20:29)
[2022-09-13] VITALS (15 sets, daily range): BP systolic 104–163; BP diastolic 57–101
[2022-09-13 00:13] LABS: POTASSIUM 3.6 mmol/L (3.5-5.1)
[2022-09-13] MEDS: CHLORDIAZEPOXIDE HCL 25 MG CAP PO SCH ×3 (01:08→16:58)
[2022-09-13] MEDS: POTASSIUM CHLORIDE 10MEQ/100ML 100 ML IV PRN ×3 (02:06→05:13)
[2022-09-13 04:41] LABS: HEMATOCRIT 38.6 % (42-54); MEAN CORPUSCULAR HGB CONC 34.7 g/dL (32.0-36.0); MEAN CORPUSCULAR VOLUME 95.1 fL (79-99); RED BLOOD CELL COUNT(AUTO) 4.06 MIL/uL (4.50-6.20); RED CELL DISTRIBUTION WIDTH 11.8 % (11.0-15.5); WHITE BLOOD COUNT (AUTO) 6.7 K/uL (4.8-10.8)
[2022-09-13 05:05] LABS: CREATININE 0.8 mg/dL (0.5-1.5); POTASSIUM 3.1 mmol/L (3.5-5.1)
[2022-09-13] MEDS: INSULIN GLARGINE 100 UNITS/ML 10 ML VIAL SQ SCH ×3 (07:20→21:08)
[2022-09-13] MEDS: ENOXAPARIN SODIUM 40 MG/0.4 ML SYRINGE SQ SCH (08:40)
[2022-09-13] MEDS: MULTIVITAMIN TABLET PO SCH (08:41)
[2022-09-13] MEDS: THIAMINE HCL 100 MG/ML 2ML VIAL IM SCH (08:41)
[2022-09-13] MEDS: FOLIC ACID 1 MG TABLET PO SCH (08:41)
[2022-09-13] MEDS: FAMOTIDINE 20MG VIAL IV SCH ×2 (08:41→20:58)
[2022-09-13] MEDS: 0.9%NACL 1000ML 1,000 ML IV SCH ×2 (08:41→16:58)
[2022-09-13] MEDS: INSULIN HUMULIN R 100 UNIT/ML 3ML SQ SCH ×5 (08:46→21:07)
[2022-09-13] MEDS ORDERED: POTASSIUM CHLORIDE 20MEQ/100ML 100 ML IV PRN (10:00)
[2022-09-13] MEDS ORDERED: POTASSIUM CHLORIDE 10% ELIXIR 20 MEQ/15 ML UDCUP PO PRN (10:00)
[2022-09-13] MEDS: KCL 20 MEQ ERTAB PO PRN ×3 (10:52→16:03)
[2022-09-13] MEDS ORDERED: DEXTROSE 50%-WATER 50 ML DISP.SYRIN IV PRN (13:00)
[2022-09-13] MEDS ORDERED: GLUCAGON 1MG KIT 1 MG ML IM PRN (13:00)
[2022-09-14] VITALS: BP 129/88
[2022-09-14] MEDS: CHLORDIAZEPOXIDE HCL 25 MG CAP PO SCH ×3 (00:48→18:37)
[2022-09-14 04:00] VITALS: BP 131/83
[2022-09-14] MEDS: 0.9%NACL 1000ML 1,000 ML IV SCH ×2 (05:11→14:16)
[2022-09-14] MEDS: INSULIN HUMULIN R 100 UNIT/ML 3ML SQ SCH ×6 (06:15→20:21)
[2022-09-14] MEDS: INSULIN GLARGINE 100 UNITS/ML 10 ML VIAL SQ SCH ×3 (06:17→20:33)
[2022-09-14 07:00] VITALS: BP 122/83
[2022-09-14] MEDS: FOLIC ACID 1 MG TABLET PO SCH (08:57)
[2022-09-14] MEDS: MULTIVITAMIN TABLET PO SCH (08:57)
[2022-09-14] MEDS: THIAMINE HCL 100 MG/ML 2ML VIAL IM SCH (08:57)
[2022-09-14] MEDS: FAMOTIDINE 20MG VIAL IV SCH ×2 (08:58→20:16)
[2022-09-14] MEDS: ENOXAPARIN SODIUM 40 MG/0.4 ML SYRINGE SQ SCH (09:00)
[2022-09-14 10:59] LABS: HEMATOCRIT 38.2 % (42-54); MEAN CORPUSCULAR HEMOGLOBIN 32.3 pg (27.0-33.0); MEAN CORPUSCULAR HGB CONC 34.8 g/dL (32.0-36.0); MEAN CORPUSCULAR VOLUME 92.7 fL (79-99); RED BLOOD CELL COUNT(AUTO) 4.12 MIL/uL (4.50-6.20); RED CELL DISTRIBUTION WIDTH 11.9 % (11.0-15.5); WHITE BLOOD COUNT (AUTO) 5.3 K/uL (4.8-10.8)
[2022-09-14 11:00] VITALS: BP 139/88
[2022-09-14 11:12] LABS: CREATININE 0.7 mg/dL (0.5-1.5); POTASSIUM 3.1 mmol/L (3.5-5.1)
[2022-09-14] MEDS ORDERED: INSULIN HUMULIN R 100 UNIT/ML 3ML SQ SCH ×2 (11:30→17:00)
[2022-09-14 15:00] VITALS: BP 136/91
[2022-09-14 20:00] VITALS: BP 127/95
[2022-09-15] VITALS (7 sets, daily range): BP systolic 118–146; BP diastolic 74–94
[2022-09-15] MEDS: 0.9%NACL 1000ML 1,000 ML IV SCH ×2 (01:20→10:47)
[2022-09-15] MEDS: CHLORDIAZEPOXIDE HCL 25 MG CAP PO SCH ×3 (01:42→16:55)
[2022-09-15] MEDS: INSULIN HUMULIN R 100 UNIT/ML 3ML SQ SCH ×7 (05:51→20:28)
[2022-09-15] MEDS: INSULIN GLARGINE 100 UNITS/ML 10 ML VIAL SQ SCH ×2 (05:54→20:27)
[2022-09-15 06:07] LABS: HEMATOCRIT 39.2 % (42-54); MEAN CORPUSCULAR HEMOGLOBIN 32.8 pg (27.0-33.0); MEAN CORPUSCULAR VOLUME 91.2 fL (79-99); RED BLOOD CELL COUNT(AUTO) 4.3 MIL/uL (4.50-6.20); RED CELL DISTRIBUTION WIDTH 11.6 % (11.0-15.5)
[2022-09-15 06:26] LABS: ALBUMIN 3.3 g/dL (3.5-5.0); CREATININE 0.7 mg/dL (0.5-1.5); MAGNESIUM 1.4 mg/dL (1.80-2.40); TOTAL PROTEIN, SERUM 6.3 g/dL (6.0-8.3)
[2022-09-15] MEDS: KCL 20 MEQ ERTAB PO PRN ×4 (06:34→16:55)
[2022-09-15] MEDS: ENOXAPARIN SODIUM 40 MG/0.4 ML SYRINGE SQ SCH (08:41)
[2022-09-15] MEDS: FAMOTIDINE 20MG VIAL IV SCH ×2 (08:48→20:26)
[2022-09-15] MEDS: MULTIVITAMIN TABLET PO SCH (08:48)
[2022-09-15] MEDS ORDERED: POTASSIUM CHLORIDE 10% ELIXIR 20 MEQ/15 ML UDCUP PO ONE (09:00)
[2022-09-15] MEDS ORDERED: MAGNESIUM 2GM PREMIX 50ML 50 ML IV PRN (09:00)
[2022-09-15 18:08] LABS: HEPATITIS B SURFACE ANTIGEN Non-Reactive (Nonreactive); HEPATITIS C ANTIBODY Non-Reactive (Nonreactive)
[2022-09-15 18:09] LABS: HEPATITIS A IGM ANTIBODY Non-Reactive (Nonreactive); HEPATITIS B CORE IGM ANTIBODY Non-Reactive (Negative)
[2022-09-16] MEDS: CHLORDIAZEPOXIDE HCL 25 MG CAP PO SCH ×2 (01:32→08:38)
[2022-09-16 03:38] VITALS: BP 124/67
[2022-09-16] MEDS: 0.9%NACL 1000ML 1,000 ML IV SCH (05:30)
[2022-09-16] MEDS: INSULIN HUMULIN R 100 UNIT/ML 3ML SQ SCH ×4 (05:35→11:38)
[2022-09-16 07:25] VITALS: BP 133/90
[2022-09-16] MEDS ORDERED: INSULIN GLARGINE 100 UNITS/ML 10 ML VIAL SQ SCH (07:30)
[2022-09-16] MEDS: FAMOTIDINE 20MG VIAL IV SCH (08:37)
[2022-09-16] MEDS: MULTIVITAMIN TABLET PO SCH (08:37)
[2022-09-16] MEDS: ENOXAPARIN SODIUM 40 MG/0.4 ML SYRINGE SQ SCH (08:40)
[2022-09-16 10:35] VITALS: BP 119/78
[2022-09-16] MEDS ORDERED: INSU100I35 SQ (12:42)
== END 2022-09-16 14:53 | disposition home or self-care (01) | DRG 638 ==
LOC: EDH 23:47 → EDHIP 23:48 → 2CH 09-12 03:28 → 3CH 09-13 10:20
PROVIDERS: ADMIT Hospitalist; ATTEND Hospitalist
DX: E11.10 Type 2 diabetes mellitus with ketoacidosis without coma (principal); N17.9 Acute kidney failure, unspecified; J44.9 Chronic obstructive pulmonary disease, unspecified; I10 Essential (primary) hypertension; F10.20 Alcohol dependence, uncomplicated; E78.5 Hyperlipidemia, unspecified; F12.10 Cannabis abuse, uncomplicated; E86.0 Dehydration; F17.200 Nicotine dependence, unspecified, uncomplicated; Z56.0 Unemployment, unspecified; Z82.0 Family history of epilepsy and other diseases of the nervous system; Z82.49 Family history of ischemic heart disease and other diseases of the circulatory system; I25.2 Old myocardial infarction; Z91.199 Patient's noncompliance with other medical treatment and regimen due to unspecified reason; Z79.4 Long term (current) use of insulin; Z82.5 Family history of asthma and other chronic lower respiratory diseases; Z82.3 Family history of stroke; Z83.3 Family history of diabetes mellitus
CPT/HCPCS: 36415; 36600; 71045; 80048; 80053; 80061; 80074; 80305; 81001; 82010; 82803; 82948; 83036; 83735; 84145; 84443; 84484; 85025; 85027; 85610; 85651; 85730; 86140; 93005; G0378; J1650; J1815; J2405; J3411; J3475; J3480; J3490; J7030

== ENCOUNTER 2023-01-20 14:24 | Emergency (ER) | payer OTHER ==
[~2023-01-20] VITALS: Ht 172.7 cm; Wt 83.9 kg
[2023-01-20 14:53] LABS: MEAN CORPUSCULAR HEMOGLOBIN 32.2 pg (27.0-33.0); MEAN CORPUSCULAR HGB CONC 34.2 g/dL (32.0-36.0); MEAN CORPUSCULAR VOLUME 93.9 fL (79-99); RED BLOOD CELL COUNT(AUTO) 4.79 MIL/uL (4.50-6.20); RED CELL DISTRIBUTION WIDTH 11.9 % (11.0-15.5); WHITE BLOOD COUNT (AUTO) 6.4 K/uL (4.8-10.8)
[2023-01-20] MEDS ORDERED: 0.9%NACL 1000ML 1,000 ML IV ONE (15:00)
[2023-01-20] MEDS ORDERED: ONDANSETRON 4MG INJ IVP ONE (15:00)
[2023-01-20 15:05] LABS: APPEARANCE,URINE CLEAR (CLEAR); BILIRUBIN,URINE NEGATIVE (NEGATIVE); COLOR,URINE LIGHT-YELLOW (YELLOW); GLUCOSE, URINE (UA) >=1000 mg/dL (NEGATIVE); KETONES,URINE >=80 mg/dL (NEGATIVE); LEUKOCYTE ESTERASE ,URINE NEGATIVE Leu/uL (NEGATIVE); NITRATE,URINE NEGATIVE (NEGATIVE); OCCULT BLOOD,URINE NEGATIVE (NEGATIVE); PH,URINE 5.5 (5.0-8.0); PROTEIN,URINE NEGATIVE (NEGATIVE); UROBILINOGEN,URINE 0.2 mg/dL (0.2-1.0)
[2023-01-20 15:06] LABS: ADD UA MICROSCOPIC YES
[2023-01-20 15:10] LABS: ALBUMIN 3.6 g/dL (3.5-5.0); BILIRUBIN,TOTAL 0.5 mg/dL (0.2-1.0); CREATININE 0.8 mg/dL (0.5-1.5); POTASSIUM 4.5 mmol/L (3.5-5.1); TOTAL PROTEIN, SERUM 7.3 g/dL (6.0-8.3)
[2023-01-20] MEDS ORDERED: INSULIN HUMULIN R 100 UNIT/ML 3ML IV ONE (15:30)
[2023-01-20 15:34] LABS: WBC,URINE 0-1 /HPF (0-1)
[2023-01-20 15:40] LABS: ABG BASE EXCESS -0.2 mmol/L (-2.0-3.0); ABG HCO3 24.2 mmol/L (21.0-28.0); ABG OXYGEN SATURATION 96.9 % (95.0-99.0); ABG PCO2 39 mmHg (35-48); HHb 3.1; PO2, ARTERIAL BG 87.2 mmHg (83.0-108.0); VENT MODE, BG RA (ROOM AIR)
[2023-01-20 17:22] VITALS: BP 124/77; PULSE 87; RESP 16; O2SAT 98
== END 2023-01-20 17:23 | disposition home or self-care (01) ==
LOC: EDH 14:24
DX: E10.65 Type 1 diabetes mellitus with hyperglycemia (principal); Z79.899 Other long term (current) drug therapy
CPT/HCPCS: 99284; 96374; 96375; 82947; 80053; 82803; 85027; 83605; 82010; 81001; 36415; 36600; 82948 ×2; 82435; 84132; 84295; 85018; J1815; J7030; J2405

== ENCOUNTER 2023-07-16 16:20 | Emergency (ER) | payer OTHER ==
[~2023-07-16] VITALS: Ht 170.2 cm; Wt 81.6 kg
[2023-07-16] MEDS ORDERED: IBUP-2070 PO (17:06)
[2023-07-16 18:00] VITALS: BP 131/72; PULSE 95; RESP 14; O2SAT 99
[2023-07-16] MEDS: KETOROLAC 60 MG VIAL (30MG/ML) IM ONE (18:03)
== END 2023-07-16 18:45 | disposition home or self-care (01) ==
LOC: EDH 16:20
DX: S46.811A Strain of other muscles, fascia and tendons at shoulder and upper arm level, right arm, initial encounter (principal); E11.9 Type 2 diabetes mellitus without complications; Z79.899 Other long term (current) drug therapy; Z98.890 Other specified postprocedural states; X50.0XXA Overexertion from strenuous movement or load, initial encounter; Y93.89 Activity, other specified; Y92.89 Other specified places as the place of occurrence of the external cause; Y99.8 Other external cause status
CPT/HCPCS: 99283; 73030; 96372; J1885